=== PATIENT | male | born 1980 ===

== ENCOUNTER 2017-03-27 11:19 | Emergency (ER) | payer MEDICAID ==
[2017-03-27 11:41] VITALS: BP 138/66; PULSE 74; RESP 16; TEMP 98.6; O2SAT 100
--- NOTE | 2017-03-27 12:25 | ED PDOC ---
Upper Extremity Pain/Injury Time Seen by Provider: 03/27/17 12:22 Chief Complaint (Nursing): Finger,Hand,&Wrist Chief Complaint (Provider): Right hand injury History Per: Patient History/Exam Limitations: no limitations Onset/Duration Of Symptoms: Days (x1) Current Symptoms Are (Timing): Still Present Quality: "Pain" Severity: Moderate Additional Complaint(s): 36 year old male presents to the ER for evaluation of right hand injury. States that around 9PM last night he was playing a punching bag machine game, and injured the hand. Now complaining of pain and swelling to right hand. Patient denies taking any medications for pain prior to arrival. Patient is able to move all digits but has pain when making a fist. He reports a prior injury to the right index finger and had surgery on the right hand. PMD: None Past Medical History Reviewed: Historical Data, Nursing Documentation, Vital Signs Vital Signs: Last Vital Signs Temp 98.6 F 03/27/17 11:40 Pulse 74 03/27/17 11:40 Resp 16 03/27/17 11:40 BP 138/66 03/27/17 11:40 Pulse Ox 100 03/27/17 11:40 - Medical History PMH: Hepatitis (C) - Surgical History Other surgeries: Right hand surgery - Family History Family History: States: Unknown Family Hx - Social History Current smoker - smoking cessation education provided: Yes Alcohol: Social Drugs: Denies - Immunization History Hx Influenza Vaccination: No Hx Pneumococcal Vaccination: No - Home Medications Home Medications: Ambulatory Orders Medication Instructions Recorded Methadone HCl [Methadone] 65 mg PO DAILY 02/14/14 Naproxen 1 tab PO Q12 PRN #14 tab 03/27/17 - Allergies Allergies/Adverse Reactions: Allergies Allergy/AdvReac Type Severity Reaction Status Date / Time No Known Allergies Allergy Verified 08/20/16 12:36 Review of Systems ROS Statement: Except As Marked, All Systems Reviewed And Found Negative Musculoskeletal: Positive for: Hand Pain (right hand pain + swelling) Skin: Negative for: Lesions, Bruising Neurological: Negative for: Numbness (and tingling) Physical Exam - Reviewed Nursing Documentation Reviewed: Yes Vital Signs Reviewed: Yes - Physical Exam Appears: Positive for: Non-toxic, No Acute Distress Head Exam: Positive for: ATRAUMATIC, NORMOCEPHALIC Skin: Positive for: Normal Color, Warm, Dry Eye Exam: Positive for: EOMI, Normal appearance, PERRL Neck: Positive for: Normal Pulses-Radial (L): 2+ Pulses-Radial (R): 2+ Extremity: Positive for: Tenderness, Capillary Refill (< 2 sec), Swelling ( noted near MCP at 4th digit), Other (Old scar noted near 4th digit; patient reports prior hand surgery) Neurologic/Psych: Positive for: Alert, Oriented. Negative for: Motor/Sensory Deficits - ECG O2 Sat by Pulse Oximetry: 100 (RA) Pulse Ox Interpretation: Normal - Progress ED Course And Treament: xry hand: neg fx xry wrist: neg fx Medical Decision Making Medical Decision Making: Initial Impression: Right hand injury, r/o fracture Time: 12:19 Initial Plan: --Motrin 600 mg PO --X-Ray Right Hand --X-Ray Right Wrist --Reevaluation Scribe Attestation: Documented by Nancy Carlson, acting as a scribe for Shabana Horne PA-C Provider Scribe Attestation: All medical record entries made by the Scribe were at my direction and personally dictated by me. I have reviewed the chart and agree that the record accurately reflects my personal performance of the history, physical exam, medical decision making, and the department course for this patient. I have also personally directed, reviewed, and agree with the discharge instructions and disposition. Disposition - Clinical Impression Clinical Impression: Hand contusion - Patient ED Disposition Is Patient to be Admitted: No - Disposition Referrals: Juan Kate MD [Staff Provider] - Disposition: Routine/Home Disposition Time: 12:56 Condition: FAIR Prescriptions: Naproxen 1 tab PO Q12 PRN #14 tab PRN Reason: Pain, Moderate (4-7) Forms: [email or web address] [facility] ([place]ak[place]), [facility] School/Work Excuse
--- NOTE | 2017-03-27 12:40 | RAD ---
PROCEDURE: Right Wrist Radiographs. HISTORY: WRIST PAIN COMPARISON: None. FINDINGS: BONES: No acute fracture. JOINTS: Unremarkable. SOFT TISSUES: Normal. OTHER FINDINGS: None. IMPRESSION: No demonstrated fracture or dislocation.
--- NOTE | 2017-03-27 12:41 | RAD ---
PROCEDURE: Right Hand Radiographs. HISTORY: hand injury COMPARISON: None. FINDINGS: BONES: No acute fracture. JOINTS: Unremarkable. SOFT TISSUES: Normal. OTHER FINDINGS: None. IMPRESSION: No demonstrated fracture or dislocation.
== END 2017-03-27 13:49 | disposition home or self-care (01) ==
LOC: MERGE 11:19 → H.ER 11:19
DX: S60.221A Contusion of right hand, initial encounter (principal); W22.8XXA Striking against or struck by other objects, initial encounter; F17.200 Nicotine dependence, unspecified, uncomplicated